=== PATIENT | male | born 1965 ===

== ENCOUNTER 2017-09-12 07:19 | Emergency (ER) | payer BC ==
[2017-09-12 07:28] VITALS: BMI 30.1
[2017-09-12 07:43] VITALS: TEMP 98.3
[2017-09-12] MEDS ORDERED: Lidocaine 5% Patch TD STA (07:46)
--- NOTE | 2017-09-12 08:04 | ED PDOC ---
Arrival/HPI - General Chief Complaint: Upper Extremity Problem/Injury Time Seen by Provider: 09/12/17 07:35 Historian: Patient, Family - History of Present Illness Narrative History of Present Illness (Text): 09/12/17 07:35 Cr Gusman is a 52 year old male, whose past medical history include diabetes , who presents to the emergency department complaining of left shoulder blade pain that radiates down to his arm. Patient reports he has tried several relief methods such as Lidocaine patches and Motrin, but it has not helped relief his symptoms. 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 Additionally, he reports the pain has become worse that he cannot sleep and it is more painful with movement. No other complaints were made. Patient denies chest pain, shortness of breath, or abdominal pain. PMD: Dr. Gonsales Symptom Onset: Gradual Symptom Course: Worsening Activities at Onset: Significant (possible heavy lifting) Modifying Factors (Text): 09/12/17 worse with movement Past Medical History - Provider Review Nursing Documentation Reviewed: Yes - Infectious Disease Hx of Infectious Diseases: None - Endocrine/Metabolic Hx Diabetes Mellitus Type 2: Yes - Psychiatric Hx Substance Use: No Family/Social History - Physician Review Nursing Documentation Reviewed: Yes Family/Social History: Diabetes Smoking Status: Never Smoked Hx Alcohol Use: No Hx Substance Use: No Allergies/Home Meds Allergies/Adverse Reactions: Allergies No Known Allergies Allergy (Verified 09/12/17 07:28) Home Medications: Home Meds Medication Instructions Recorded Confirmed MetFORMIN [glucoPHAGE] 1,000 mg PO BID 09/12/17 09/12/17 Review of Systems - Review of Systems Constitutional: absent: Fevers Respiratory: absent: SOB Cardiovascular: absent: Chest Pain Gastrointestinal: absent: Abdominal Pain Musculoskeletal: Other (left shoulder pain radiating down arm) Physical Exam Vital Signs Reviewed: Yes Vital Signs Temp Pulse Resp BP Pulse Ox 09/12/17 07:20 98.3 F 97 H 19 139/90 97 Temperature: Afebrile Blood Pressure: Normal Pulse: Tachycardic Respiratory Rate: Normal Appearance: Positive for: Well-Appearing, Non-Toxic, Comfortable Pain Distress: None Mental Status: Positive for: Alert and Oriented X 3 - Systems Exam Head: Present: Atraumatic, Normocephalic Pupils: Present: PERRL Extroacular Muscles: Present: EOMI Conjunctiva: Present: Normal Neck: Present: Normal Range of Motion Respiratory/Chest: Present: Clear to Auscultation, Good Air Exchange. No: Respiratory Distress, Accessory Muscle Use Cardiovascular: Present: Regular Rate and Rhythm, Normal S1, S2. No: Murmurs Upper Extremity: Present: Tenderness (tenderness to left trapezium muscles and pain with left lateral arm raising). No: Cyanosis, Edema Neurological: Present: GCS=15, CN II-XII Intact, Speech Normal Skin: Present: Warm, Dry, Normal Color. No: Rashes Psychiatric: Present: Alert, Oriented x 3, Normal Insight, Normal Concentration Medical Decision Making ED Course and Treatment: 09/12/17 Impression: 52 year old male with tenderness to left trapezium muscles and pain with left lateral arm raising Differential Diagnosis included but are not limited to: musculoskeletal pain Plan: --Tylenol, Toradol, Valium, and Lidocaine -- Reassess and disposition Progress Notes: - EKG Interpretation EKG Interpretation (Text): 09/12/17 08:40 NSR at 88 bpm, normal axis, normal intervals, no ST-T wave elevation - Medication Orders Current Medication Orders: Discontinued Medications Acetaminophen (Tylenol 325mg Tab) 975 mg PO STAT STA Stop: 09/12/17 07:47 Last Admin: 09/12/17 07:54 Dose: 975 mg Diazepam (Valium) 5 mg PO ONCE ONE Stop: 09/12/17 07:47 Last Admin: 09/12/17 07:54 Dose: 5 mg Ketorolac Tromethamine (Toradol) 60 mg IM STAT STA Stop: 09/12/17 07:47 Last Admin: 09/12/17 07:54 Dose: 60 mg MAR Pain Assessment Document 09/12/17 07:54 CNR (Rec: 09/12/17 07:54 CNR [facility] [id number] Pain Reassessment Is this a pain reassessment? No IM Administration Charges Document 09/12/17 07:54 CNR (Rec: 09/12/17 07:54 CNR [facility] [id number] Charges for Administration # of IM Administrations 1 Lidocaine (Lidoderm) 1 ea TD STAT STA Stop: 09/12/17 07:47 Last Admin: 09/12/17 07:53 Dose: 1 ea MAR Transdermal Patch Site Document 09/12/17 07:53 CNR (Rec: 09/12/17 07:53 CNR [facility] [id number] Transdermal Patch Site Transdermal Patch Site Left Shoulder - Scribe Statement The provider has reviewed the documentation as recorded by the Kaushikibtevin Zavala Provider Scribe Attestation: All medical record entries made by the Scribe were at my direction and personally dictated by me. I have reviewed the chart and agree that the record accurately reflects my personal performance of the history, physical exam, medical decision making, and the department course for this patient. I have also personally directed, reviewed, and agree with the discharge instructions and disposition. Disposition/Present on Arrival - Present on Arrival Any Indicators Present on Arrival: No History of DVT/PE: No History of Uncontrolled Diabetes: No Urinary Catheter: No History of Decub. Ulcer: No History Surgical Site Infection Following: None - Disposition Have Diagnosis and Disposition been Completed?: Yes Diagnosis: Left shoulder strain Disposition: HOME/ ROUTINE Disposition Time: 08:41 Patient Plan: Discharge Condition: IMPROVED Discharge Instructions (ExitCare): Muscle Strain (ED) Print Language: SLOV[place] Additional Instructions: Mr. Gusman, thank you for letting us take care of you today. Return to the ER if your symptoms worsen, or if any problems. Take the medications listed below as prescribed. Valium is a muscle relaxer ( and was prescribed); please take it sparingly as it can become addictive. Follow up with Dr. Mick Gonsales next week for a follow up evaluation. Apply a cold pack to your shoulder for additional pain relief as needed. Prescriptions: Acetaminophen [Tylenol 325mg tab] 2 tab PO Q6 PRN #30 tab PRN Reason: Pain, Moderate (4-7) diaZEpam [Valium] 1 tab PO TID PRN #6 tab PRN Reason: Muscle Spasm Ibuprofen [Motrin Tab] 1 tab PO TID PRN #30 tab PRN Reason: Pain, Moderate (4-7) Referrals: Mick Gonsales DO [Family Provider] - Follow up with primary [facility] [Outside] - Follow up with primary Forms: [employer] ([place]), WORK NOTE
[2017-09-12 08:53] VITALS: BP 110/70; PULSE 95; RESP 18; O2SAT 95
--- NOTE | 2017-09-12 16:45 | CARD ---
APPROVED REPORT EKG Measurement Heart [id number] <Conclusion> Normal sinus rhythm RVCD PRWP
== END 2017-09-12 08:51 | disposition home or self-care (01) ==
LOC: ED 07:19
DX: S46.912A Strain of unspecified muscle, fascia and tendon at shoulder and upper arm level, left arm, initial encounter (principal); X58.XXXA Exposure to other specified factors, initial encounter; E11.9 Type 2 diabetes mellitus without complications
CPT/HCPCS: 93005; 96372; 99284; J1885